=== PATIENT | female | born 1970 | race Caucasian/White ===

== ENCOUNTER 2019-01-22 07:35 | Day surgery (SDC) | payer OTHER ==
[~2019-01-22] VITALS: Ht 170.2 cm; Wt 61.8 kg
[~2019-01-22 07:35] MED LIST: LORazepam 2 MG/ML VIAL IVP PRN; SODIUM CHLORIDE 0.9% 1,000 ML IV ONE
[2019-01-22] MEDS ORDERED: LIDOCAINE/PF 2% 5 ML VIAL IM ONE (07:36)
[2019-01-22] MEDS ORDERED: DEXAMETHASONE SOD PHOS 4 MG/ML VIAL IVP ONE (07:36)
[2019-01-22] MEDS ORDERED: MIDAZOLAM HCL 2 MG/2 ML VIAL IVP ONE ×2 (07:36→14:00)
[2019-01-22] MEDS ORDERED: METOCLOPRAMIDE HCL 5 MG/ML 2 ML VIAL IVP ONE (07:36)
[2019-01-22] MEDS ORDERED: DiphenhydrAMINE HCL 50 MG/ML VIAL IVP ONE (07:36)
[2019-01-22] MEDS ORDERED: ONDANSETRON HCL 4 MG/2 ML VIAL IVP ONE (07:36)
[2019-01-22] MEDS ORDERED: KETAMINE HCL 50 MG/ML 10 ML VIAL IVP ONE (07:36)
[2019-01-22] MEDS ORDERED: KETOROLAC TROMETHAMINE 60 MG/2 ML VIAL IM ONE (07:36)
[2019-01-22] MEDS ORDERED: METOPROLOL TARTRATE 5 MG/5 ML VIAL IVP ONE (07:36)
[2019-01-22] MEDS ORDERED: PROPOFOL 1% 20 ML VIAL IVP ONE (07:36)
[2019-01-22] MEDS ORDERED: SODIUM CHLORIDE 0.9% 1,000 ML IV ONE (07:47)
[2019-01-22] MEDS ORDERED: PROPOFOL 1000 MG/ISO-OSM 100 ML IV ONE (08:01)
[2019-01-22] MEDS ORDERED: IODIXANOL 320 MG/ML 150 ML VIAL ONE (08:18)
[2019-01-22] MEDS ORDERED: HEPARIN SODIUM 1000 UNITS/NS 1,000 ML ONE (08:19)
[2019-01-22] MEDS ORDERED: GELATIN SPONGE,ABSORBABLE 12-7 MM TP ONE (08:20)
[2019-01-22] MEDS ORDERED: LIDOCAINE 1%/EPI 1:200,000/PF 10 ML VIAL ONE (08:20)
[2019-01-22 08:28] LABS: BASOPHILS % (AUTO) 0.9 % (0.0-2.0); EOSINOPHILS % (AUTO) 1.5 % (1.0-6.0); HEMATOCRIT 28.7 % (36-46); HEMOGLOBIN 9.1 g/dL (12.0-16.0); LYMPHOCYTES # (AUTO) 1.1 K/uL (1.0-4.8); LYMPHOCYTES % (AUTO) 12.7 % (22.0-44.0); MEAN CORPUSCULAR HEMOGLOBIN 20.7 pg (26.0-34.0); MEAN CORPUSCULAR HGB CONC 31.8 G/dL (31.0-37.0); MEAN CORPUSCULAR VOLUME 65 fL (80-100); MONOCYTES # (AUTO) 0.9 K/uL (0.1-1.0); NEUTROPHILS # (AUTO) 6.5 K/uL (1.8-7.7); NEUTROPHILS % (AUTO) 74.9 % (40.0-70.0); PLATELET COUNT (AUTO) 622 K/uL (150-450); RED BLOOD CELL COUNT(AUTO) 4.39 MIL/uL (4.00-5.20); RED CELL DISTRIBUTION WIDTH 20.4 % (11.5-14.5)
[2019-01-22] MEDS ORDERED: MEPERIDINE-PF 25 MG/ML VIAL IVP PRN (08:30)
[2019-01-22] MEDS ORDERED: FentaNYL CITRATE-PF 100 MCG/2 ML VIAL IVP PRN (08:30)
[2019-01-22] MEDS ORDERED: HYDROmorphone 2 MG/ML SYRINGE IVP PRN ×2 (08:30→12:15)
[2019-01-22 08:37] LABS: ANION GAP 10 mmol/L (8-16); CALCIUM, TOTAL 9.2 mg/dL (8.8-10.5); CARBON DIOXIDE 25 mmol/L (22-29); CHLORIDE 103 mmol/L (98-107); CREATININE 0.64 mg/dL (0.60-1.30); GLOMERULAR FILTR. RATE CALC > 60 mL/min (>60); GLUCOSE,RANDOM 95 mg/dL (70-110); POTASSIUM 3.9 mmol/L (3.5-5.1); SODIUM SERUM 138 mmol/L (136-145); UREA NITROGEN, BLOOD 7 mg/dL (7-18)
[2019-01-22 08:43] LABS: ALANINE AMINOTRANSFERASE 72 U/L (12-78); ALBUMIN 3.6 g/dL (3.4-5.0); ALKALINE PHOSPHATASE 409 U/L (46-116); ASPARTATE AMINOTRANSFERASE 117 U/L (15-37); BILIRUBIN,TOTAL 0.3 mg/dL (0.1-1.0); TOTAL PROTEIN, SERUM 7.6 g/dL (6.4-8.2)
[2019-01-22 09:07] VITALS: BP 103/63
[2019-01-22] MEDS ORDERED: NITROGLYCERIN 50 MG/D5% WATER 250 ML ONE (09:30)
[2019-01-22] MEDS ORDERED: VERAPAMIL HCL 2.5 MG/ML 2 ML VIAL ONE (09:30)
[2019-01-22] MEDS ORDERED: HEPARIN SODIUM,PORCINE 1,000 UNITS/ML 10 ML VIAL IARTER ONE ×2 (11:00→11:15)
[2019-01-22] MEDS ORDERED: NITROGLYCERIN/D5W 50 MG/250 ML IV BOTTLE IARTER ONE (11:00)
[2019-01-22] MEDS ORDERED: VERAPAMIL HCL 2.5 MG/ML 2 ML VIAL IARTER ONE (11:00)
[2019-01-22] MEDS ORDERED: LIDOCAINE 1% 30 ML/SOD BICARB 8.4% 4 ML SQ ONE (11:00)
[2019-01-22] MEDS ORDERED: HEPARIN SODIUM 1000 UNITS/NS 1,000 ML IARTER ONE (11:15)
[2019-01-22] MEDS ORDERED: HEPARIN SODIUM 1000 UNITS/NS 500 ML ONE (11:15)
[2019-01-22 11:57] VITALS: BP 123/76
[2019-01-22] MEDS ORDERED: SODIUM CHLORIDE 0.9% 1,000 ML IV SCH (12:10)
[2019-01-22] MEDS ORDERED: KETOROLAC TROMETHAMINE 30 MG/ML VIAL ONE (12:14)
[2019-01-22] MEDS ORDERED: HYDROmorphone HCL 2 MG TABLET PO ONE (12:15)
[2019-01-22] MEDS ORDERED: OxyCODONE HCL/ACETAMINOPHEN 5-325 MG TABLET PO PRN ×2 (12:15)
[2019-01-22] MEDS ORDERED: SODIUM CHLORIDE 0.9% 1,850 ML IV ONE (12:15)
[2019-01-22] MEDS ORDERED: ACETAMINOPHEN 1000 MG/ISO-OSM 100 ML IV ONE ×2 (12:15→12:30)
[2019-01-22] MEDS ORDERED: KETOROLAC TROMETHAMINE 30 MG/ML VIAL IVP ONE (12:30)
[2019-01-22] MEDS ORDERED: CYCLOBENZAPRINE HCL 10 MG TABLET PO ONE (12:45)
[2019-01-22] MEDS ORDERED: BUPIVACAINE LIPOSOME/PF 1.3%-13.3MG/ML SUSPENSION 10 ML VIAL INJ ONE (13:45)
[2019-01-22] MEDS ORDERED: PROMETHAZINE HCL 25 MG TABLET PO ONE (13:45)
[2019-01-22] MEDS ORDERED: MEPERIDINE-PF 50 MG/ML SYRINGE IM ONE (13:45)
[2019-01-22] MEDS ORDERED: MEPERIDINE-PF 50 MG/ML SYRINGE ONE (13:49)
[2019-01-22] MEDS ORDERED: BUPIVACAINE HCL/PF 0.25% 30 ML VIAL ONE (13:51)
[2019-01-22] MEDS ORDERED: MIDAZOLAM HCL 2 MG/2 ML VIAL ONE (14:07)
[2019-01-22] MEDS ORDERED: OXYGEN THERAPY IH SCH (20:00)
== END 2019-01-22 15:55 | disposition home or self-care (01) ==
LOC: SURGERY 07:35 → EDSTATUS 09:00 → SURGERY 15:55
PROVIDERS: ATTEND Radiology Diagnostic Radiology
DX: N63.0 Unspecified lump in unspecified breast (principal); Z98.890 Other specified postprocedural states
CPT/HCPCS: 36216; 36218 ×2; 36415; 37243; 75710; 75756; 76000; 76937; 80053; 84702; 85025; C1769 ×2; J0131; J1100; J1200; J1644; J1885 ×2; J2175; J2250; J2405; J2704 ×2; J2765; J3490 ×7; J7030; Q9967; 75898; 76001; 76942

== ENCOUNTER 2019-01-24 05:40 | Day surgery (SDC) | payer OTHER ==
[~2019-01-24] VITALS: Ht 170.2 cm; Wt 61.8 kg
[2019-01-24] MEDS ORDERED: ONDANSETRON HCL 4 MG/2 ML VIAL IVP ONE (05:41)
[2019-01-24] MEDS ORDERED: SUCCINYLCHOLINE CHLORIDE 20 MG/ML 10 ML VIAL IVP ONE (05:41)
[2019-01-24] MEDS ORDERED: LIDOCAINE/PF 2% 5 ML VIAL IM ONE (05:41)
[2019-01-24] MEDS ORDERED: FentaNYL CITRATE-PF 100 MCG/2 ML VIAL IVP ONE (05:41)
[2019-01-24] MEDS ORDERED: DEXAMETHASONE SOD PHOS 4 MG/ML VIAL IVP ONE (05:41)
[2019-01-24] MEDS ORDERED: MIDAZOLAM HCL 2 MG/2 ML VIAL IVP ONE (05:41)
[2019-01-24] MEDS ORDERED: PROPOFOL 1% 20 ML VIAL IVP ONE (05:41)
[2019-01-24] MEDS ORDERED: RINGERS SOLUTION,LACTATED 1,000 ML IV ONE ×2 (06:00→07:37)
[2019-01-24] MEDS ORDERED: SODIUM CHLORIDE 0.9% 1,000 ML IV ONE ×3 (06:04→11:28)
[2019-01-24] MEDS ORDERED: LORazepam 2 MG/ML VIAL IVP PRN (06:30)
[2019-01-24] MEDS ORDERED: LIDOCAINE/PF 1% 30 ML VIAL ONE (07:29)
[2019-01-24] MEDS ORDERED: ACETAMINOPHEN 1000 MG/ISO-OSM 100 ML IV ONE (07:37)
[2019-01-24] MEDS ORDERED: GELATIN SPONGE,ABSORBABLE 12-7 MM TP ONE (08:09)
[2019-01-24] MEDS ORDERED: FentaNYL CITRATE-PF 100 MCG/2 ML VIAL IVP PRN (09:30)
[2019-01-24] MEDS ORDERED: HYDROmorphone 2 MG/ML SYRINGE IVP PRN ×2 (09:30→09:45)
[2019-01-24] MEDS ORDERED: SODIUM CHLORIDE 0.9% 1,000 ML IV SCH (09:37)
[2019-01-24] MEDS ORDERED: KETOROLAC TROMETHAMINE 30 MG/ML VIAL IM ONE (09:45)
[2019-01-24] MEDS ORDERED: DEXTROSE 5% IV ONE (09:45)
[2019-01-24] MEDS ORDERED: ACETYLCYSTEINE IV ONE (09:45)
[2019-01-24] MEDS ORDERED: OxyCODONE HCL/ACETAMINOPHEN 5-325 MG TABLET PO PRN ×2 (09:45)
[2019-01-24] MEDS ORDERED: HYDROmorphone HCL 2 MG TABLET PO ONE (09:45)
[2019-01-24] MEDS ORDERED: WATER IV ONE (09:45)
[2019-01-24] MEDS ORDERED: HYDROmorphone 2 MG/ML SYRINGE ONE (11:21)
[2019-01-24] MEDS ORDERED: OxyCODONE HCL/ACETAMINOPHEN 5-325 MG TABLET ONE (13:11)
[2019-01-24] MEDS ORDERED: ACETAMINOPHEN 325 MG TABLET ONE ×2 (13:11→13:14)
[2019-01-24] MEDS ORDERED: ACETAMINOPHEN 325 MG TABLET PO ONE ×2 (13:15)
[2019-01-24] MEDS ORDERED: OXYGEN THERAPY IH SCH (20:00)
== END 2019-01-24 16:45 | disposition home or self-care (01) ==
LOC: SURGERY 05:40 → EDSTATUS 07:30 → SURGERY 16:45
PROVIDERS: ATTEND Radiology Diagnostic Radiology
DX: N63.0 Unspecified lump in unspecified breast (principal); Z98.890 Other specified postprocedural states
CPT/HCPCS: 19083; C2618; 19105; 47001; 76937; 76942; 88305; 88312; 88341; 88342; 93005; J0131; J0132; J0330; J0690; J1100; J1170; J2250; J2405; J2704; J3010; J3490; J7030; J7060; J7120